=== PATIENT | male | born 1945 | race Caucasian/White ===

== ENCOUNTER 2017-11-07 13:48 | Emergency (ER) | payer OTHER ==
[2017-11-07 13:58] VITALS: BP 119/72
--- NOTE | 2017-11-07 15:20 | UC ---
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 HIS HEAD FEELS A BIT ITCHY/IRRITATED BUT THE RASH IS OTHERWISE ASYMPTOMATIC. NOT ITCHY ANYWHERE ELSE. NOT PAINFUL. PT RETURNED FROM [place] 2 WEEKS AGO AND AT THE END OF HIS TRIP HE HAD URI SX INCLUDING COUGH AND RUNNY NOSE. HE TOOK SOME OTC COUGH SYRUP AND USED A NASAL SPRAY BUT NO OTHER MEDS. HE HAD NO FEVER. NO NAUSEA, MUSCLE ACHES OR JOINT PAIN. HE FEELS TIRED BUT IS ALSO JETLAGGED. DENIES ANY RECENT ANTIBIOTICS OR CHANGES IN MEDS. NO NEW FOODS OR LOTIONS, DEODORANTS, DETERGENTS. UTD VACCINATIONS. - History of Current Complaint Chief Complaint: UCRash Time Seen by Provider: 11/07/17 14:40 Stated Complaint: RASH Hx Obtained From: Patient Onset/Duration: Sudden Onset, Lasting Hours, Still Present Timing: Constant Onset Severity: Moderate Current Severity: Moderate Pain Intensity: 0 Pain Scale Used: 0-10 Numeric Location: Diffuse Character: Redness Aggravating Factor(s): Nothing Alleviating Factor(s): Nothing Associated Signs & Symptoms: Positive: Cough, Rash. Negative: Nausea, Difficulty Breathing, Fever, Chills, Wheezing, Chest Pain, Hoarseness, Throat Tightening, Lightheadedness, Syncope, Drainage, Bruising, Tenderness, Red Streaks, Joint Swelling - Allergy/Home Medications Allergies/Adverse Reactions: Allergies Allergy/AdvReac Type Severity Reaction Status Date / Time No Known Allergies Allergy Verified 11/07/17 13:58 Home Medications: Home Medications Acetaminophen/Diphenhydramine [Tylenol Pm Ex-Strength Caplet] 1 each PO [History] Aspirin 81 mg PO 11/07/17 [History] Atorvastatin* [Lipitor 80 MG*] 80 mg PO 1700 11/07/17 [History Confirmed ] Ticagrelor (NF) [Brilinta 60 MG TAB] 60 mg PO 11/07/17 [History] Review of Systems Constitutional: Fatigue Skin: Rash ENT: Sore Throat, Nasal Discharge Respiratory: Cough Cardiovascular: Negative Gastrointestinal: Negative All Other Systems Reviewed And Are Negative: Yes PMH/Surg Hx/FS Hx/Imm Hx Cardiovascular History: Cardiac Disease - Surgical History Surgical History: Yes Surgery Procedure, Year, and Place: Tonsillectomy as a child; wisdom teeth out[place] [place] History Known Family History: Negative: Hypertension - Social History Alcohol Use: Rare Substance Use Type: None Smoking Status (MU): Never Smoked Tobacco - Immunization History Most Recent Influenza Vaccination: fall 2014 Most Recent Tetanus Shot: unknown Most Recent Pneumonia Vaccination: never Physical Exam Triage Information Reviewed: Yes Appearance: Well-Appearing, No Pain Distress, Well-Nourished Vital Signs: Initial Vital Signs Temp 97.8 F 11/07/17 13:53 Pulse 69 11/07/17 13:53 Resp 18 11/07/17 13:53 BP 119/72 11/07/17 13:53 Pulse Ox 100 11/07/17 13:53 Vital Signs Reviewed: Yes Eyes: Positive: Conjunctiva Clear. Negative: Discharge ENT: Positive: Hearing grossly normal, Pharynx normal, TMs normal Neck: Positive: Supple, Nontender, No Lymphadenopathy Respiratory Exam: Normal Cardiovascular Exam: Normal Abdomen Description: Positive: Soft Musculoskeletal: Positive: No Edema Neurological: Positive: Alert Psychological: Positive: Age Appropriate Behavior Skin: Positive: rashes - erythematous, maculopapular, blanching rash diffusely from top of head to feet. Palms and soles spared Diagnostics - Laboratory Diagnostic Studies Completed/Ordered: STREP NEG Course/Dx - Diagnoses Provider Diagnoses: VIRAL EXANTHEM Discharge - Sign-Out/Discharge Documenting (check all that apply): Discharge - Discharge Plan Condition: Stable Disposition: HOME Patient Education Materials: Viral Exanthem (ED), Dermatitis (ED) Referrals: Alicia Busch MD [Primary Care Provider] - If Needed Additional Instructions: YOUR RASH MAY SIMPLY BE A REACTION TO YOUR RECENT VIRAL ILLNESS AND WILL RESOLVE WITH TIME. GIVEN IT'S APPEARANCE WILL ALSO TEST FOR MEASLES AND STREP. BLOOD COUNT AND METABOLIC PANEL ALSO OBTAINED. CALL DERMATOLOGY ON OM MORNING TO SCHEDULE AN APPT FOR FURTHER EVALUATION. DERMATOLOGY IN [place] Dr. Kimberly East Address: [facility] [place] [address] DR. JACEK DIOP [facility] [address] [place] [address] [address] ANGELI CALI [place] [facility], [facility] [address] [place] [address]; [address] [place] [address] DER[address]Y [place] Dr. Nara Talbot DERMATOLOGY [place] DR. ALICIA CABRERA [phone] - Billing Disposition and Condition Condition: STABLE Disposition: HOME
[2017-11-08 13:25] LABS: ABS Basophils 0 10^3/ul (0-0.2); ABS Eosinophils 0.1 10^3/ul (0-0.6); ABS Lymphocytes 1.3 10^3/ul (1.0-4.8); ABS Monocytes 0.6 10^3/ul (0-0.8); ABS Neutrophils 4.7 10^3/ul (1.5-7.7); ABS Nucleated RBC 0 10^3/ul; Eosinophil % 2.1 % (0-6); Hematocrit 42 % (42-52); Hemoglobin 13.8 g/dl (14.0-18.0); Lymphocyte % 19.3 % (25-47); Mean Corpuscular HGB Conc 33 g/dl (31-36); Mean Corpuscular Hemoglobin 28 pg (27-31); Mean Corpuscular Volume 86 fL (80-94); Mean Platelet Volume 7.5 um3 (7.4-10.4); Nucleated Red Blood Cells % 0.3; Platelet Count 214 10^3/ul (150-450); Red Blood Count 4.85 10^6/ul (4.0-5.4); Red Cell Distribution Width 14 % (10.5-15); White Blood Count 6.8 10^3/ul (3.5-10.8)
[2017-11-08 13:37] LABS: EGFR Non-African American 66.5 (>60)
== END 2017-11-07 15:45 | disposition home or self-care (01) ==
LOC: UCEAST 13:48
DX: B09 Unspecified viral infection characterized by skin and mucous membrane lesions (principal)
CPT/HCPCS: 36415; 80053; 85025; 86060; 86765; 87651; 99211; G0463

== ENCOUNTER 2020-10-25 08:09 | Observation (INO) ==
[~2020-10-25 08:09] MED LIST: Buffered Lidocaine 1% SYRIN 1 ml INTRADERM ONE; Lactated Ringers 1000 ml BAG 1,000 ML IV SCH
[2020-10-25] MEDS ORDERED: Propofol 10 MG/ML 20 ML BTL ONE ×2 (08:10→08:33)
[2020-10-25] MEDS ORDERED: Lidocaine 2% PF 5 ML VIAL ONE (08:10)
[2020-10-25] MEDS ORDERED: Midazolam 2 mg/2 ml VIAL 1 mg/ml 2 ml VIAL (2 mg) ONE (08:13)
[2020-10-25] MEDS ORDERED: ceFAZolin 2 GM PREMIX 2 GM/50 ML BAG ONE (08:24)
[2020-10-25] MEDS ORDERED: Ketamine HCL 50 mg/ml 10 ml VIAL (500 MG) ONE (08:32)
[2020-10-25] MEDS ORDERED: Ondansetron 4 mg VIAL 2 MG/ML 2 ml VIAL IV PRN ×2 (08:35→11:40)
[2020-10-25] MEDS ORDERED: Naloxone 0.4 mg VIAL 0.4 mg/ml 1 ml VIAL IV PRN (08:35)
[2020-10-25] MEDS ORDERED: DiMENhydriNATE IV 50 mg/ml 1 ml VIAL IV PUSH PRN (08:35)
[2020-10-25] MEDS ORDERED: oxyCODONE/Acetamin 5/325 mg TAB PO PRN ×2 (08:35→11:40)
[2020-10-25] MEDS ORDERED: fentaNYL 100 mcg/2 ml 50 MCG/ML VIAL IV PRN (08:35)
[2020-10-25] MEDS ORDERED: Ropivacaine 5 MG/ML 20 ML VIAL 0.5% (100 MG) ONE (09:06)
[2020-10-25] MEDS ORDERED: Dexmedetomidine 200 mcg/2 ml 2 ml VIAL (200 mcg) ONE (09:36)
[2020-10-25] MEDS ORDERED: Ondansetron 4 mg VIAL 2 MG/ML 2 ml VIAL ONE (10:37)
[2020-10-25] MEDS ORDERED: Dexamethasone IV 4 MG/ML VIAL 1 ml VIAL ONE (10:52)
[2020-10-25] MEDS ORDERED: diPHENhydraMINE IV 50 MG/ML 1 ml VIAL (BENADRYL) IV PRN (11:40)
[2020-10-25] MEDS ORDERED: Ondansetron ODT 4 mg TAB 4 MG TAB PO PRN (11:40)
[2020-10-25] MEDS ORDERED: Morphine 2 MG/ML SYRINGE IV PRN (11:40)
[2020-10-25] MEDS ORDERED: Magnesium Hydroxide LIQ 30 ML UDC PO PRN (11:40)
[2020-10-25] MEDS ORDERED: Lactulose 30 ml UDC PO PRN (11:40)
[2020-10-25] MEDS ORDERED: diPHENhydraMINE 25 mg TAB PO PRN (11:40)
[2020-10-25] MEDS: Lactated Ringers 1000 ml BAG 1,000 ML IV SCH (16:13)
[2020-10-25] MEDS ORDERED: CMCS: Alfuzosin ER 10 mg TAB.ER (NF) 10 MG TAB.ER PO SCH (18:00)
[2020-10-25] MEDS ORDERED: Lactated Ringers 1000 ml BAG 1,000 ML IV SCH (20:00)
[2020-10-25] MEDS: ceFAZolin 1 GM ADVAN 1 GM in NS 0.9% 50 ML 50 ML IVPB SCH (20:47)
[2020-10-25] MEDS: Magnesium Hydroxide LIQ 30 ML UDC PO SCH (20:51)
[2020-10-26] MEDS: Lactated Ringers 1000 ml BAG 1,000 ML IV SCH (02:31)
[2020-10-26 04:40] LABS: Hematocrit 31 % (42-52); Hemoglobin 10.5 g/dL (14.0-18.0); Mean Platelet Volume 7.3 fL (7.4-10.4); Platelet Count 145 10^3/uL (150-450)
[2020-10-26] MEDS: ceFAZolin 1 GM ADVAN 1 GM in NS 0.9% 50 ML 50 ML IVPB SCH ×2 (04:43→12:50)
[2020-10-26 04:56] LABS: BUN/Creatinine Ratio 27.3 (8-20); Calcium 8.3 mg/dL (8.6-10.3); EGFR African American 119.2 (>60); EGFR Non-African American 98.5 (>60); Potassium 3.5 mmol/L (3.5-5.0)
[2020-10-26] MEDS ORDERED: Vitamin THERAPEUTIC TAB PO SCH (09:00)
[2020-10-26] MEDS: Magnesium Hydroxide LIQ 30 ML UDC PO SCH (10:06)
[2020-10-26 16:40] VITALS: BP 130/64
[2020-10-26] MEDS ORDERED: CMCS: Alfuzosin ER 10 mg TAB.ER (NF) 10 MG TAB.ER PO SCH (18:00)
== END 2020-10-26 17:30 | disposition home or self-care (01) ==
LOC: OR 08:09 → SSU 08:09
PROVIDERS: ADMIT Orthopaedic Surgery Adult Reconstructive Orthopaedic Surgery; ATTEND Orthopaedic Surgery Adult Reconstructive Orthopaedic Surgery